=== PATIENT | female | born 1950 | race Caucasian/White ===

== ENCOUNTER 2021-07-10 12:29 | Outpatient (CLI) | payer MEDICARE, SELFPAY ==
--- NOTE | 2021-07-10 13:08 | MM_ITS ---
WS: [id number] BILATERAL SCREENING DIGITAL MAMMOGRAM WITH CAD HISTORY: SCREENING COMPARISON: 05/11/2018 and 05/07/2017 Bilateral CC and MLO views submitted. Computer aided detection analyzed. Breast composition: The breasts are heterogeneously dense, which may obscure small masses. No suspici ous masses, microcalcifications or architectural distortion. Asymmetries and partially obscured areas within each breast are similar to prior studies. MM/[place] [id number] IMPRESSION: BI-RADS: 2-Benign FOLLOW UP: 1 Year Follow-up
--- NOTE | 2021-07-10 13:45 | XR_ITS ---
WS: [id number] SCREENING DEXA SCAN [employer] CLINICAL INFORMATION: POSTMENOPAUSAL COMPARISON: 2018 FINDINGS: The L1-L4 bone mineral density measures 1.116 g/cm2. This corresponds to a T score score of -0.5 and Z score of 1.8. Left femoral neck bone mineral density measures 0.755 g/cm2. This corresponds to a T score of -2.0 an d Z score of -0.1. Right femoral neck bone mineral density measures 0.726 g/cm2. This corresponds to a T score -2.2of an d Z score of -0.3. Mean femoral neck bone mineral density measures 0.740 g/cm2. This corresponds to a T score of -2.1 an d Z score of -0.2. XR/XR DEXA axial skeleton* [id number] IMPRESSION: Normal bone mineralization in the lumbar spine. Osteopenia of the femoral necks . Patient's FRAX calculated 10 year probability for major osteoporotic fracture i s 16.5 % and osteoporotic hip fracture is 5.7%.
== END 2021-07-10 12:30 | disposition home or self-care (01) ==
LOC: RADSHAW 12:34
PROVIDERS: PCP Family Medicine; Visit Provider Family Medicine
DX: Z12.31 Encounter for screening mammogram for malignant neoplasm of breast (principal); Z78.0 Asymptomatic menopausal state; M85.89 Other specified disorders of bone density and structure, multiple sites
CPT/HCPCS: 77067; 77080